=== PATIENT | male | born 1960 | race Caucasian/White ===

== ENCOUNTER 2019-01-29 12:39 | Emergency (ER) | payer SELFPAY ==
--- NOTE | 2019-01-29 12:46 | ED Physician Documentation ---
General Adult - HISTORIAN Historian: patient - HPI Stated Complaint: anxiety, confusion, palpatations Chief Complaint: General Adult Onset: other (not sure how long 3 days? ) Timing: still present Severity: mild Further Comments: yes (he states he has had a "lot of stress" and he just started to drive [place] and he feels lost and maybe confused. He states he is worried about where he will live. He denies any head injury. He states he just cant remember what to do. Denies any bodily deficit.) - ROS CONST: no problems EYES/ENT: none CVS/RESP: none GI/: none MS/SKIN/LYMPH: none NEURO/PSYCH: denies: headache, fainting, dizziness, tingling, numbness, difficulty walking, difficulty with speech - PAST HX Past History: AMI Immunizations: UTD Allergies/Adverse Reactions: Allergies Allergy/AdvReac Type Severity Reaction Status Date / Time Penicillins Allergy Verified 01/29/19 13:21 Home Medications: Ambulatory Orders Medication Instructions Recorded Clonazepam [Klonopin] 1 mg PO TID 01/29/19 Dextroamphetamine/Amphetamine 30 mg PO DAILY 01/29/19 [Adderall 30 mg Tablet] Doxycycline [Vibramycin] 100 mg PO BID 01/29/19 Fluoxetine HCl [Prozac] 20 mg PO DAILY 01/29/19 QUEtiapine FUMARATE [Seroquel] 25 mg PO HS 01/29/19 Temazepam 30 mg PO HS 01/29/19 - SOCIAL HX Smoking History: non-smoker Alcohol Use: none Drug Use: none - FAMILY HX Family History: No - REVIEWED ASSESSMENTS Nursing Assessment Reviewed: Yes Vitals Reviewed: Yes Progress - Progress Progress: 1405: sleeping quietly in room DG 1445: discussed results and discharge plan - he is requesting to talk to the social welfare research worker DG [id number] municipal maintenance worker at bedside ED Results Lab/Radiology - Radiology Radiology Impressions: Portable chest History: Confusion Portable chest dated January 29, 2019 demonstrates a normal cardiomediastinal silhouette. Pulmonary vascularity is normal. Lungs are clear. Impression: No active disease. Electronically signed on Jan 29, 2019 2:06:46 PM CDT by: Karlie Sun Examination: CT head without contrast History: CONFUSION SINCE YESTERDAY Comparison exam: None available Technique: Noncontrast head CT protocol. Findings: Ventricles and sulci are consistent for patient age. Cerebrocerebellar parenchyma demonstrates periventricular low attenuation consistent with small vessel disease. No evidence for parenchymal hemorrhage. No evidence for mass or mass effect. No midline shift. No extra axial fluid collections. Partial visualization of the paranasal sinuses, mastoid air cells, orbits, skull and scalp without gross irregularity. Streak artifact from dental hardware. Impression: Age related changes. No acute parenchymal process. No hemorrhage. Electronically signed on Jan 29, 2019 2:04:10 PM CDT by: Addison Nicole General Adult Physical Exam - PHYSICAL EXAM GENERAL APPEARANCE: mild distress EENT: eye inspection normal, pharynx normal, no signs of dehydration, TM's nml NECK: normal inspection RESPIRATORY: no resp distress, chest non-tender, breath sounds normal CVS: reg rate & rhythm, heart sounds normal, equal pulses, no murmur ABDOMEN: soft, normal bowel sounds, no distension RECTAL: normal exam BACK: normal inspection, no CVA tenderness SKIN: warm/dry, normal color EXTREMITIES: non-tender NEURO: oriented X3, motor nml, sensation nml, cognition normal, depressed mood/affect Discharge Clincal Impression: Anxiety, Palpitation Referrals: Primary Doctor,No [Primary Care Provider] - 2 Days Comments: 1. continue meds 2. Find PCP In area 3. Return to ER for any increasing concerns Condition: Stable Disposition: 01 HOME, SELF-CARE Decision to Admit: NO Date of Decison to Admit: 01/29/19 Decision Time: 15:15
[2019-01-29] MEDS: ASPIRIN 81 MG CHEW TAB PO ONE (13:05)
[2019-01-29] MEDS: 0.9 % SODIUM CHLORIDE 1,000 ML IV ONE (13:05)
[2019-01-29 13:30] LABS: BASOPHILS % 1.4 % (0.0-1.5); EOSINOPHILS % 1.2 % (0.0-6.8); MEAN CORPUSCULAR HEMOGLOBIN 30.2 pg (28.0-34.0); MONOCYTES % 4.9 % (0.0-11.0); NEUTROPHILS # 10.6 # k/uL (1.4-7.7)
[2019-01-29 13:42] LABS: eGFR (Non-African) > 60
--- NOTE | 2019-01-29 15:08 | Diagnostic Imaging Report ---
VANESSA BRADLEY [facility] [address] [facility] [address] [place], [place]. [address] Report Submission Date: Jan 29, 2019 2:04:10 PM CDT Patient Study Name: CLEMENTE GONZALEZ Date: Jan 29, 2019 1:27:12 PM CDT Modality Type: CT\SR Gender: M Description: CT BRAIN W/O CONTRAST : 58 Institution: [facility] Physician: VANESSA BRADLEY Examination: CT head without contrast History: CONFUSION SINCE YESTERDAY Comparison exam: None available Technique: Noncontrast head CT protocol. Findings: Ventricles and sulci are consistent for patient age. Cerebrocerebellar parenchyma demonstrates periventricular low attenuation consistent with small vessel disease. No evidence for parenchymal hemorrhage. No evidence for mass or mass effect. No midline shift. No extra axial fluid collections. Partial visualization of the paranasal sinuses, mastoid air cells, orbits, skull and scalp without gross irregularity. Streak artifact from dental hardware. Impression: Age related changes. No acute parenchymal process. No hemorrhage. Electronically signed on Jan 29, 2019 2:04:10 PM CDT by: Addison STANFORD
--- NOTE | 2019-01-29 15:09 | Diagnostic Imaging Report ---
VANESSA BRADLEY [facility] [address] [facility] [address] [place], [place]. [address] Report Submission Date: Jan 29, 2019 2:06:46 PM CDT Patient Study Name: CLEMENTE GONZALEZ Date: Jan 29, 2019 1:32:50 PM CDT Modality Type: DX Gender: M Description: CHEST 1VIEW : 58 Institution: [facility] Physician: VANESSA BRADLEY Portable chest History: Confusion Portable chest dated January 29, 2019 demonstrates a normal cardiomediastinal silhouette. Pulmonary vascularity is normal. Lungs are clear. Impression: No active disease. Electronically signed on Jan 29, 2019 2:06:46 PM CDT by: Karlie STANFORD
[2019-01-29 15:57] VITALS: BP 151/75
[2019-01-31 08:26] LABS: CANNABINOIDS NEGATIVE ng/mL (< 50)
[2019-01-31 08:27] LABS: METHYLENEDIOXYMETHAMPHETAMINE NEGATIVE ng/mL (<500)
[2019-01-31 08:30] LABS: APPEARANCE,URINE CLEAR (CLEAR); COLOR,URINE YELLOW (YELLOW); OCCULT BLOOD,URINE TRACE-INTACT (NEGATIVE)
[2019-01-31 08:31] LABS: UROBILINOGEN URINE 0.2 Eu (0.2-1.0)
== END 2019-01-29 15:50 | disposition home or self-care (01) ==
LOC: ED 12:39
DX: F41.9 Anxiety disorder, unspecified (principal); R00.2 Palpitations
CPT/HCPCS: 36415; 70450; 71045; 80053; 80320; 80377; 81002; 84436; 84479; 84484; 85025; 93005; 99284; 99285; J7030; G0480; G0481; S1016

== ENCOUNTER 2019-02-08 19:39 | Emergency (ER) | payer OTHER ==
--- NOTE | 2019-02-08 20:03 | ED Physician Documentation ---
General Adult - HISTORIAN Historian: patient - HPI Stated Complaint: Accidental ingestion Chief Complaint: General Adult Additional Information: Patient states that he accidentally took some aircraft cabin cleaner ([employer] multipurpose aircraft cabin cleaner) in his mouth thinking it was some fruit juice and spit it out. He believes that he may have swallowed a little of it. He is now having some mild nausea and burning sensation in the back of his throat. Patient is afraid that he might have some detrimental problems associated with it. Patient has seen Dr Carrera on Saturday and needs some of his psychiatric medications filled. He will run out of his Adderall tomorrow. Onset: minutes Timing: still present Severity: mild - ROS CONST: denies: fever CVS/RESP: none GI/: vomiting (dry heaving), nausea NEURO/PSYCH: anxiety - PAST HX Past History: hypertension, other (CAD, ADHD, depression) Other History: none Surgeries/Procedures: other (Cardiac stints (5), appendectomy, carpal tunnel release) Immunizations: referred to PCP Allergies/Adverse Reactions: Allergies Allergy/AdvReac Type Severity Reaction Status Date / Time Penicillins Allergy Verified 02/08/19 19:57 Home Medications: Ambulatory Orders Medication Instructions Recorded Fluoxetine HCl [Prozac] 20 mg PO DAILY 01/29/19 Temazepam 30 mg PO HS 01/29/19 - SOCIAL HX Smoking History: non-smoker Alcohol Use: none Drug Use: none, other (use to do crack coccaine) - FAMILY HX Family History: No - VITAL SIGNS Vital Signs: Vital Signs Temp Pulse Resp BP Pulse Ox 98.4 F 98 H 19 177/105 96 02/08/19 19:49 02/08/19 19:49 02/08/19 19:49 02/08/19 19:49 02/08/19 19:49 General Adult Physical Exam - PHYSICAL EXAM GENERAL APPEARANCE: moderate distress EENT: pharynx normal (no irritation or redness noted), no signs of dehydration NECK: normal inspection, thyroid normal, supple RESPIRATORY: no resp distress, chest non-tender, breath sounds normal. No: wheezes, rales CVS: reg rate & rhythm, heart sounds normal, equal pulses, no murmur, no gallop ABDOMEN: soft, no organomegaly, normal bowel sounds, no abdominal bruit, no distension, non-tender NEURO: oriented X3, CN's nml as tested, other (anxious) Discharge Clincal Impression: Accidental ingestion of substance Qualifiers: Encounter type: initial encounter Qualified Code(s): T65.91XA - Toxic effect of unspecified substance, accidental (unintentional), initial encounter Referrals: Primary Doctor,Jania [Primary Care Provider] - 02/16/19 Additional Instructions: Continue to drink a lot of fluids (water) over the next 24hours. If you developed any problems to return tot he clinic in the AM or return to the ED. I will consult Dr. Carrera about your psychiatric medications and where he is on filling those for you. Condition: Stable Disposition: 01 HOME, SELF-CARE Decision to Admit: NO Date of Decison to Admit: 02/08/19 Decision Time: 20:00
[2019-02-08 20:36] VITALS: BP 148/87
== END 2019-02-08 20:33 | disposition home or self-care (01) ==
LOC: ED 19:39
DX: T65.891A Toxic effect of other specified substances, accidental (unintentional), initial encounter (principal); R11.0 Nausea; R07.0 Pain in throat; Y92.009 Unspecified place in unspecified non-institutional (private) residence as the place of occurrence of the external cause
CPT/HCPCS: 99282; 99283; A9270

== ENCOUNTER 2019-08-19 10:37 | Outpatient (CLI) | payer OTHER | END 2019-08-19 10:42 | LOC: LAB 10:37 | PROVIDERS: ATTEND Family Medicine | DX: R73.09 Other abnormal glucose (principal) | CPT/HCPCS: 36415; 83036 ==